=== PATIENT | female | born 1990 | race African-American/Black ===

== ENCOUNTER 2017-06-06 10:08 | Emergency (ER) | payer SELFPAY ==
[2017-06-06] MEDS ORDERED: Dexamethasone 4 mg/ml Vial ONE (10:59)
== END 2017-06-06 11:19 | disposition home or self-care (01) ==
LOC: ERS 10:08
DX: J02.9 Acute pharyngitis, unspecified (principal); J45.909 Unspecified asthma, uncomplicated; F31.9 Bipolar disorder, unspecified; Z87.891 Personal history of nicotine dependence; Z79.899 Other long term (current) drug therapy
CPT/HCPCS: 87081; 87430; 96372; J1100

== ENCOUNTER 2017-07-23 19:51 | Emergency (ER) | payer SELFPAY ==
[2017-07-23 20:17] LABS: #Basophils 0.1 thou/uL (0.0-0.2); #Eosinphils 0.7 thou/uL (0.0-0.7); #Lymphocytes 2.6 thou/uL (1.20-3.40); #Monocytes 0.8 thou/uL (0.11-0.59); #Neutrophils 4.8 thou/uL (1.40-6.50); %Basophils 0.8 % (0.0-1.0); %Eosinophils 7.5 % (0.0-10.0); %Monocytes 9.1 % (0.0-10.0); Hematocrit 40.5 % (36.0-47.0); Red Blood Cell (RBC) Count 4.21 mill/uL (4.20-5.40); White Blood Cell (WBC) Count 8.9 thou/uL (4.8-10.8)
[2017-07-23 20:37] LABS: ALT (SGPT) 8 U/L (8-55); AST (SGOT) 13 U/L (5-34); Alkaline Phosphatase 58 U/L (40-150); Anion Gap 11 mmol/L (10-20); BUN (Urea Nitrogen) 8 mg/dL (7.0-18.7); Bilirubin, Total 0.7 mg/dL (0.2-1.2); CK (CPK) 117 U/L (29-168); Calc. Creatinine Clearance 0 mL/min (70-130); Calcium 9.5 mg/dL (7.8-10.44); Carbon Dioxide 30 mmol/L (22-29); Chloride 104 mmol/L (98-107); Estimated GFR-MDRD 86; Globulin 3.1 g/dL (2.4-3.5); Protein, Total 7.2 g/dL (6.0-8.3)
--- NOTE | 2017-07-23 20:38 | RAD ---
CHEST ONE VIEW 07/23/17 HISTORY: Chest pain. COMPARISON: 11/21/16. FINDINGS: the cardiac silhouette is upper limits of normal in size and is magnified by projection. Pulmonary va sculature is unremarkable. calcified granulomata are consistent with healed granulomatous disease. Th ere is no confluent air space consolidation, or pneumothorax. 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 IMPRESSION: No active cardiopulmonary abnormalities are demonstrated. POS: [facility]
[2017-07-23 20:43] LABS: Troponin I Less than 0.010 ng/mL (< 0.028)
== END 2017-07-23 21:44 | disposition home or self-care (01) ==
LOC: ERS 19:51
DX: R07.89 Other chest pain (principal); J45.909 Unspecified asthma, uncomplicated; F31.9 Bipolar disorder, unspecified; F17.200 Nicotine dependence, unspecified, uncomplicated
CPT/HCPCS: 36415; 71010; 80053; 82550; 82553; 84484; 85025; 93005

== ENCOUNTER 2018-02-25 10:06 | Emergency (ER) | payer BC, SELFPAY ==
--- NOTE | 2018-02-25 11:55 | RAD ---
LEFT SHOULDER 3 VIEWS: Date: 02/25/18 HISTORY: Injury, left shoulder pain. FINDINGS/IMPRESSION: No fracture or dislocation is identified. There is a calcified granuloma in the left upper lung. POS: [facility]
[2018-02-25] MEDS ORDERED: Ketorolac Tromethamine 60 MG/2 ML VIAL ONE (12:09)
== END 2018-02-25 11:56 | disposition home or self-care (01) ==
LOC: ERS 10:06
DX: S43.402A Unspecified sprain of left shoulder joint, initial encounter (principal); J45.909 Unspecified asthma, uncomplicated; F31.9 Bipolar disorder, unspecified; Z87.891 Personal history of nicotine dependence; Z79.899 Other long term (current) drug therapy; V89.2XXA Person injured in unspecified motor-vehicle accident, traffic, initial encounter
CPT/HCPCS: 96372; J1885

== ENCOUNTER 2019-09-09 09:29 | Emergency (ER) | payer SELFPAY | END 2019-09-09 10:37 | disposition home or self-care (01) | LOC: ERS 09:29 | DX: G62.9 Polyneuropathy, unspecified (principal); J45.909 Unspecified asthma, uncomplicated; F31.9 Bipolar disorder, unspecified; Z87.891 Personal history of nicotine dependence; Z79.899 Other long term (current) drug therapy | CPT/HCPCS: 99283 ==

== ENCOUNTER 2019-09-21 03:42 | Emergency (ER) | payer SELFPAY ==
[2019-09-21] MEDS ORDERED: Clindamycin/D5W 600 mg/50 ml Premix Bag ONE (06:31)
== END 2019-09-21 07:36 | disposition home or self-care (01) ==
LOC: ERS 03:42
DX: K04.7 Periapical abscess without sinus (principal); L03.211 Cellulitis of face; F31.9 Bipolar disorder, unspecified; J45.909 Unspecified asthma, uncomplicated; Z87.891 Personal history of nicotine dependence
CPT/HCPCS: 96365; J3490